=== PATIENT | female | born 1960 | race Caucasian/White ===

== ENCOUNTER → 2016-10-09 | Outpatient (CLI) | payer BC ==
--- NOTE | 2016-10-12 12:28 | MM ---
Reason for exam: screening (asymptomatic). Last mammogram was performed 2 years and 3 months ago. History: Patient is postmenopausal. Family history of breast cancer in maternal aunt at age 70. Physical Findings: A clinical breast exam by your physician is recommended on an annual basis and results should be correlated with mammographic findings. MG 3D Screening Mammo W/Cad Bilateral CC and MLO view(s) were taken. Prior study comparison: July 25, 2014, bilateral MG screening mammo w CAD. October 20, 2012, bilateral digital screening mammo w/CAD. There are scattered fibroglandular densities. No significant changes when compared with prior studies. ASSESSMENT: Negative, BI-RAD 1 RECOMMENDATION: Routine screening mammogram of both breasts in 1 year.
== END | disposition home or self-care (01) ==
LOC: RADMAMWWP 13:50
PROVIDERS: ATTEND Family Medicine
DX: Z12.31 Encounter for screening mammogram for malignant neoplasm of breast (principal)
CPT/HCPCS: 77063; G0202

== ENCOUNTER → 2017-08-03 | Outpatient (CLI) | payer BC ==
[2017-08-03 20:29] LABS: ALT 40 U/L (9-52); AST 25 U/L (14-36); Albumin 4.4 g/dL (3.5-5.0); Alkaline Phosphatase 91 U/L (38-126); Anion Gap 8 mmol/L; Blood Urea Nitrogen 15 mg/dL (7-17); Calcium 9.7 mg/dL (8.4-10.2); Carbon Dioxide 30 mmol/L (22-30); Chloride 102 mmol/L (98-107); Cholesterol 242 mg/dL (<200); Glucose 76 mg/dL (74-99); HDL Cholesterol 90 mg/dL (40-60); LDL Cholesterol,Calculated 139 mg/dL (0-99); Potassium 5.1 mmol/L (3.5-5.1); Sodium 140 mmol/L (137-145); Total Bilirubin 0.5 mg/dL (0.2-1.3); Total Protein 7.3 g/dL (6.3-8.2); Triglycerides 64 mg/dL (<150)
[2017-08-03 21:26] LABS: T4, Free (Free Thyroxine) 0.28 ng/dL (0.78-2.19)
== END | disposition home or self-care (01) ==
LOC: LABMAIN 17:53
PROVIDERS: ATTEND Internal Medicine
DX: E03.9 Hypothyroidism, unspecified (principal); E78.2 Mixed hyperlipidemia
CPT/HCPCS: 36415; 80053; 80061; 84439; 84443

== ENCOUNTER → 2017-11-12 | Outpatient (CLI) | payer BC ==
[2017-11-12 14:53] LABS: T4, Free (Free Thyroxine) 0.57 ng/dL (0.78-2.19)
== END | disposition home or self-care (01) ==
LOC: LABWHC1 12:24
PROVIDERS: ATTEND Internal Medicine
DX: E03.9 Hypothyroidism, unspecified (principal)
CPT/HCPCS: 36415; 84439; 84443

== ENCOUNTER → 2019-10-12 | Outpatient (CLI) | payer BC | END | disposition home or self-care (01) | DX: E03.4 Atrophy of thyroid (acquired) (principal) | CPT/HCPCS: 76536 ==

== ENCOUNTER → 2020-01-05 | Outpatient (CLI) | payer BC ==
--- NOTE | 2020-01-09 11:20 | MM ---
Reason for exam: screening (asymptomatic). Last mammogram was performed 3 years and 3 months ago. History: Patient is postmenopausal. Family history of breast cancer in maternal aunt at age 70. Physical Findings: A clinical breast exam by your physician is recommended on an annual basis and results should be correlated with mammographic findings. MG 3D Screening Mammo W/Cad Bilateral CC and MLO view(s) were taken. Prior study comparison: October 09, 2016, bilateral MG 3d screening mammo w/cad. July 25, 2014, bilateral MG screening mammo w CAD. There are scattered fibroglandular densities. No suspicious abnormality. No significant changes when compared with prior studies. ASSESSMENT: Negative, BI-RAD 1 RECOMMENDATION: Routine screening mammogram of both breasts in 1 year.
== END | disposition home or self-care (01) ==
LOC: RADMAMWWP 08:26
PROVIDERS: ATTEND Internal Medicine
DX: Z12.31 Encounter for screening mammogram for malignant neoplasm of breast (principal)
CPT/HCPCS: 77063; 77067

== ENCOUNTER → 2021-04-30 | Outpatient (CLI) | payer BC ==
--- NOTE | 2021-05-01 05:19 | MR ---
EXAMINATION TYPE: MR lumbar spine wo con DATE OF EXAM: 04/30/2021 COMPARISON: None HISTORY: Right leg/hip pain for 1 year. Multiplanar multiecho imaging of the lumbar spine without contrast. The lumbar vertebra have normal alignment. There is degenerative disc space narrowing throughout the lumbar spine. There is no compression fracture. There are small posterior disc bulging from L1 to L5. There is developmentally adequate spinal canal and not a significant spinal stenosis. There is some mild multilevel hypertrophic facet arthropathy. I see no focal bone destruction. There is no lumbar p araspinal mass. The sacrum is intact. IMPRESSION: Multilevel spondylotic changes. Multilevel small posterior central disc herniations from L1 to L5. No significant spinal stenosis.
== END | disposition home or self-care (01) ==
LOC: RADMRIMAIN 18:34
PROVIDERS: ATTEND Family Medicine
DX: M51.26 Other intervertebral disc displacement, lumbar region (principal); M47.816 Spondylosis without myelopathy or radiculopathy, lumbar region
CPT/HCPCS: 72148

== ENCOUNTER → 2021-05-23 | Outpatient (CLI) | payer BC ==
--- NOTE | 2021-05-23 13:33 | BD ---
EXAMINATION TYPE: Axial Bone Density DATE OF EXAM: 05/23/2021 COMPARISON: 08/22/2014 CLINICAL HISTORY: Height: 60 IN Weight: 159 LBS FRAX RISK QUESTIONS: Secondary Osteoporosis: Rheumatoid Arthritis: YES RISK FACTORS HISTORY OF: Active: YES Postmenopausal woman: AGE 48 MEDICATIONS: Thyroid Medications: YES Which medication: Levothyroxine How Lon+ YEARS Additional Medications: LEVOTHYROXINE, RINBOLQ, ARAVA, MOTRIN EXAM MEASUREMENTS: Bone mineral densitometry was performed using the [employer] System. Bone mineral density as measured about the Lumbar spine is: ----- L1-L4(G/cm2): 1.172 T Score Values are as follows: ----- L2: -1.0 ----- L3: 0.6 ----- L4: 0.2 ----- L1-L4: -0.1 Bone mineral density has: Increased 9.2% since study of: 08/22/2014 Bone mineral density about the R hip (g/cm2): 0.750 Bone mineral density about the L hip (g/cm2): 0.827 T Score values are as follows: -----R Neck: -2.1 -----L Neck: -1.5 -----R Total: -1.8 -----L Total: -1.3 Bone mineral density has: Decreased -2.9% since study of: 08/22/2014 IMPRESSION: Osteopenia bilateral femora. NOTE: T-SCORE=SD OF THE YOUNG ADULT MEAN.
--- NOTE | 2021-05-26 12:00 | MM ---
Reason for exam: screening (asymptomatic). Last mammogram was performed 1 year and 5 months ago. History: Patient is postmenopausal. Family history of breast cancer in maternal aunt at age 70. Took hormonal contraceptives for 5 years. Physical Findings: A clinical breast exam by your physician is recommended on an annual basis and results should be correlated with mammographic findings. MG 3D Screening Mammo W/Cad Bilateral CC and MLO view(s) were taken. Prior study comparison: January 05, 2020, bilateral MG 3d screening mammo w/cad. October 09, 2016, bilateral MG 3d screening mammo w/cad. There are scattered fibroglandular densities. There is no discrete abnormality. No significant changes when compared with prior studies. ASSESSMENT: Negative, BI-RAD 1 RECOMMENDATION: Routine screening mammogram of both breasts in 1 year.
== END | disposition home or self-care (01) ==
LOC: RADMAMWWP 09:43
PROVIDERS: ATTEND Family Medicine
DX: Z12.31 Encounter for screening mammogram for malignant neoplasm of breast (principal); M85.89 Other specified disorders of bone density and structure, multiple sites; Z78.0 Asymptomatic menopausal state
CPT/HCPCS: 77063; 77067; 77080

== ENCOUNTER 2022-01-23 09:53 | Day surgery (SDC) | payer BC ==
[2022-01-21 15:02] VITALS: BMI 29.2
[~2022-01-23 09:53] MED LIST: DEXAMETHASONE SOD PHOSPHATE 4 MG/ML 1 ML VIAL IV ONE; HYDROmorphone 0.5 MG/0.5 ML SYRINGE IVP PRN; LACTATED RINGERS 1,000 ML IV SCH; MIDAZOLAM 2 MG/2 ML VIAL IV PRN; ONDANSETRON 4 MG/2 ML VIAL IVP ONE; SCOPOLAMINE 1 MG/72 HR PATCH TRANSDERM ONE
[2022-01-23] MEDS ORDERED: LIDOCAINE 2% INJ 20 MG/ML (2 ML VIAL) ONE (12:15)
[2022-01-23] MEDS ORDERED: PROPOFOL 10 MG/ML 20 ML VIAL IV ONE (12:15)
[2022-01-23] MEDS ORDERED: MIDAZOLAM 2 MG/2 ML VIAL ONE (12:15)
[2022-01-23] MEDS ORDERED: fentaNYL (PF) 50 MCG/ML 2 ML AMP ONE (12:15)
[2022-01-23] MEDS ORDERED: ceFAZolin 1,000 MG in SODIUM CHLORIDE 0.9% 1,000 ML IRRIGATION ONE (12:19)
[2022-01-23] MEDS ORDERED: BUPIVACAINE (PF) 0.25% 30 ML VIAL SQ ONE (12:33)
[2022-01-23 13:19] VITALS: TEMP 97.9
--- NOTE | 2022-01-23 13:33 | P.OP ---
Date of Procedure: 01/23/22 Preoperative Diagnosis: Fifth metatarsal fracture with delayed healing right foot Postoperative Diagnosis: Same Procedure(s) Performed: Open reduction with internal fixation right fifth metatarsal fracture Implants: 4.5 mm x 50 mm partially threaded screw 1.5 mL Augment Anesthesia: SARIAH Surgeon: Wilmer Caraballo Estimated Blood Loss (ml): 1 Pathology: none sent Condition: stable Disposition: PACU Description of Procedure: The patient was brought into the operating room and placed on table supine position. Timeout was taken to confirm correct patient identifiers, correct procedure, and correct laterality of surgery. Once all staff in the room were in agreement with the timeout, anesthesia induced the patient and placed them under general anesthetic. A well-padded tourniquet was placed on the right ankle. 15 mL of 0.25% Marcaine was injected as a right ankle block. A bump was placed underneath the right hip to internally rotate the right foot. The right foot was then prepped and draped in the usual manner. The foot was exsanguinated and the tourniquet inflated to 250 mmHg. Utilizing fluoroscopy and outlined and the skin was made proximal to the fifth metatarsal base for the proper placement of the skin incision. The incision was made through the skin and deepened down to the subcutaneous tissue careful to identify, avoid, and retract any neurovascular structures and cauterize any bleeding vessels. Blunt dissection was continued through the subcutaneous layer to the base of the fifth metatarsal. Under direct fluoroscopic visualization, a guidewire for the screw system was placed at the fifth metatarsal tuberosity. It was slowly advanced into the medullary canal but proximal to the fracture line. The trajectory of the pin was checked both on the AP and lateral views to ensure that it stayed within the medullary canal. The wire was then advanced to the fracture line at which point the drill was inserted over the wire and used to pass the sclerotic bone contained within the fracture. Once the drill had gone past the fracture the wire was advanced distally into the medullary canal and the remaining drilling was performed. With the wire still in place the depth gauge was used to determine the correct length of screw. Then the tap was placed over the wire and advanced until the threaded past the fracture line. The tap and wire were removed and then the area was thoroughly irrigated. Then 1.5 mL of Augment was injected directly into medullary canal concentrated near the fracture line. Then a 4.5 mm x 50 mm partially threaded screw was inserted into the drill hole and advanced until the threads were distal to the fracture line and the head engaged the cortex of the fifth metatarsal base. AP and lateral views with fluoroscopy confirmed the proper placement of the screw. The wound is then irrigated. And then the incision closed with 3-0 nylon. Nonadherent gauze and a bulky dry dressing applied to the right foot. The tourniquet was released and capillary refill return to all digits on the right foot. The patient was then placed in a well-padded, well molded plaster posterior mold/sugar tong splint. The ankle for held in neutral position as the splint dried. Once dried anesthesia was reversed and the patient was taken recovery with vital signs stable.
[2022-01-23 14:08] VITALS: BP 146/92; PULSE 73; RESP 18
== END 2022-01-23 14:45 | disposition home or self-care (01) ==
LOC: OR 09:53
PROVIDERS: ATTEND Podiatrist
DX: S92.351G Displaced fracture of fifth metatarsal bone, right foot, subsequent encounter for fracture with delayed healing (principal); M06.9 Rheumatoid arthritis, unspecified; E03.9 Hypothyroidism, unspecified; Z83.3 Family history of diabetes mellitus; Z82.49 Family history of ischemic heart disease and other diseases of the circulatory system; Z87.891 Personal history of nicotine dependence; X58.XXXD Exposure to other specified factors, subsequent encounter; Z79.890 Hormone replacement therapy; Z79.899 Other long term (current) drug therapy
CPT/HCPCS: 28485; C1713 ×2; J2250; J1100; J0690 ×2; J2405; J3010; J2704; J2001

== ENCOUNTER → 2022-06-05 | Outpatient (CLI) | payer BC ==
--- NOTE | 2022-06-05 09:51 | BD ---
EXAMINATION TYPE: Axial Bone Density DATE OF EXAM: 06/05/2022 COMPARISON: 05-23-21 CLINICAL HISTORY: 61 years year old Female. ICD-10 CODE: M81.0 AGE-RELATED OSTEOPOROSIS Height: 60IN Weight: 163LB FRAX RISK QUESTIONS: History of Fracture in Adulthood: YES Secondary Osteoporosis: Rheumatoid Arthritis: YES RISK FACTORS HISTORY OF: Active: YES Postmenopausal woman: YES AT 48 Lost more than 2 inches in height since high school: PT UNSURE MEDICATIONS: Thyroid Medications: Which medication: Levothyroxine How Lon+ YEARS Additional Medications: MOTRIN, RINVOQ, ARAVA, VITAMIN D Additional History: FOOT FX EXAM MEASUREMENTS: Bone mineral densitometry was performed using the [employer] System. Bone mineral density as measured about the Lumbar spine is: ----- L1-L4(G/cm2): 1.075 T Score Values are as follows: ----- L1: -1.3 ----- L2: -1.6 ----- L3: -0.2 ----- L4: -0.3 ----- L1-L4: -0.9 Bone mineral density has: Decreased -7.1% since study of: 05-23-21 Bone mineral density about the R hip (g/cm2): 0.723 Bone mineral density about the L hip (g/cm2): 0.846 T Score values are as follows: -----R Neck: -2.1 -----L Neck: -1.6 -----R Total: -2.3 -----L Total: -1.3 Bone mineral density has: Decreased -3.8% since study of: 05-23-21 FRAX%s: The graph provided illustrates a 21.1% chance for a major osteoporotic fx and a 3.5% chance f or the hips probability for fx in 10 years time. IMPRESSION: Osteopenia (T Score between -2.5 and -1). There is slightly increased risk of fracture and the patient may be considered for treatment. Re-Screen 2-5 years. NOTE: T-SCORE=SD OF THE YOUNG ADULT MEAN.
== END | disposition home or self-care (01) ==
LOC: RADBDWWP 09:04
PROVIDERS: ATTEND Internal Medicine Rheumatology
DX: M85.89 Other specified disorders of bone density and structure, multiple sites (principal)
CPT/HCPCS: 77080

== ENCOUNTER → 2022-08-07 | Outpatient (CLI) | payer BC ==
--- NOTE | 2022-08-10 08:05 | MM ---
Reason for Exam: Screening (asymptomatic). Last mammogram was performed 1 year(s) and 3 month(s) ago. Patient History: Menarche at age 17. First Full-Term at age 27. Postmenopausal. Patient used Hormonal Contraceptives for 5 years. Maternal aunt had breast cancer, age 70. Risk Values: Rozina 5 year model risk: 1.5%. NCI Lifetime model risk: 7.4%. Prior Study Comparison: 10/09/2016 Bilateral Screening Mammogram, [facility]. 01/05/2020 Bilateral Screening Mammogram, [facility]. 05/23/2021 Bilateral Screening Mammogram, [facility]. Tissue Density: There are scattered fibroglandular densities. Findings: Analyzed By CAD. There is no suspicious group of microcalcifications or new suspicious mass in either breast. Overall Assessment: Negative, BI-RAD 1 Management: Screening Mammogram of both breasts in 1 year. A clinical breast exam by your physician is recommended on an annual basis and results should be correlated with mammographic findings. Electronically signed and approved by: Jaret Soriano M.D.
== END | disposition home or self-care (01) ==
LOC: RADMAMWWP 10:50
PROVIDERS: ATTEND Family Medicine
DX: Z12.31 Encounter for screening mammogram for malignant neoplasm of breast (principal); Z78.0 Asymptomatic menopausal state; Z80.3 Family history of malignant neoplasm of breast
CPT/HCPCS: 77063; 77067

== ENCOUNTER → 2022-08-21 | Outpatient (CLI) | payer BC ==
--- NOTE | 2022-08-21 14:24 | CT ---
EXAMINATION: CT ABDOMEN AND PELVIS WITH IV CONTRAST DATE OF EXAMINATION: 08/21/2022. COMPARISON: None available. INDICATION: And burning and pelvic region. PROCEDURE: Axial CT of the abdomen and pelvis was performed with contrast and sagittal and coronal reformatted images were performed. CT dose lowering techniques were used, to include: automated expos ure control, adjustment for patient size, and/or use of iterative reconstruction. 70 mL of Isovue-300 was given intravenously. FINDINGS: LOWER CHEST : The visualized lung bases are clear. There are no pleural or pericardial effusions. ABDOMEN: Liver and Biliary system: Normal. Adrenal glands: Normal. Kidneys and ureters: Normal. Spleen: Normal. Pancreas: Normal. Gallbladder: Normal. Lymph nodes, Peritoneum and mesentery: There is no mesenteric or retroperitoneal lymphadenopathy. Gastrointestinal tract: There are no dilated loops of bowel or free intraperitoneal air. The appe ndix is normal. Aorta/IVC: No aortic aneurysm. IVC normal. Abdominal wall: Normal. PELVIS: Fluid: There is no free fluid in the pelvis. Lymph Nodes: There is no pelvic or inguinal lymphadenopathy.. Urinary bladder: Normal. BONES: There is some scattered degenerative disc and facet changes seen throughout the spine. No agg ressive osseous lesions are otherwise identified. ADDITIONAL SIGNIFICANT FINDINGS: None. IMPRESSION: 1. No acute process seen within the abdomen or pelvis. 2. Diverticulosis without evidence of diverticulitis.
== END | disposition home or self-care (01) ==
LOC: RADCTMAIN 12:16
PROVIDERS: ATTEND Family Medicine
DX: K57.90 Diverticulosis of intestine, part unspecified, without perforation or abscess without bleeding (principal); G57.23 Lesion of femoral nerve, bilateral lower limbs; R20.2 Paresthesia of skin
CPT/HCPCS: 74177; Q9967

== ENCOUNTER → 2022-11-27 | Outpatient (CLI) | payer BC ==
--- NOTE | 2022-11-30 12:25 | US ---
EXAMINATION TYPE: US arterial UE single level DATE OF EXAM: 11/27/2022 2:03 PM CLINICAL INDICATION: Female, 62 years old with history of M05.79,M79.641,M79.642,M54.50,G89.29; numbn ess within hand and fingers History of: Smoker: previous Hypertension: Yes Diabetic: No Hyperlipidemia: No TIA/CVA: No Previous Vascular Surgery: No CAD: No PA: No Vascular Ulcers: No Claudication: No Gangrene: No Doppler Waveforms: Right: Brachial: Multiphasic Radial: Multiphasic Ulnar: Multiphasic Left: Brachial: Multiphasic Radial: Multiphasic Ulnar: Multiphasic Wrist Brachial Indices: Right: 0.94 Left: 0.94 IMPRESSION: Normal blood flow to the bilateral upper extremities
== END | disposition home or self-care (01) ==
LOC: RADUSWWP 13:16
PROVIDERS: ATTEND Internal Medicine Rheumatology
DX: M79.641 Pain in right hand (principal); M79.642 Pain in left hand; M05.79 Rheumatoid arthritis with rheumatoid factor of multiple sites without organ or systems involvement; M54.50 Low back pain, unspecified; G89.29 Other chronic pain; I10 Essential (primary) hypertension
CPT/HCPCS: 93922

== ENCOUNTER → 2023-02-12 | Outpatient (CLI) | payer BC ==
--- NOTE | 2023-02-12 11:58 | US ---
EXAMINATION TYPE: US venous doppler duplex LE LT DATE OF EXAM: 02/12/2023 11:48 AM COMPARISON: NONE CLINICAL INDICATION: Female, 62 years old with history of R22.42 SWELLING, MASS AND LUMP; SIDE PERFORMED: Left TECHNIQUE: The lower extremity deep venous system is examined utilizing real time linear array sonog beatriz with graded compression, doppler sonography and color-flow sonography. VESSELS IMAGED: Common Femoral Vein Deep Femoral Vein Greater Saphenous Vein * Femoral Vein Popliteal Vein Small Saphenous Vein * Proximal Calf Veins (* superficial vessels) Left Leg: Negative for DVT Small fluid collection left pop fossa measures 1.0 x 0.6 cm. IMPRESSION: 1. Left lower extremity ultrasound negative for deep venous thrombosis.
== END | disposition home or self-care (01) ==
LOC: RADUSWWP 11:14
PROVIDERS: ATTEND Internal Medicine Geriatric Medicine
DX: R22.42 Localized swelling, mass and lump, left lower limb (principal)

== ENCOUNTER → 2023-04-02 | Outpatient (CLI) | payer BC ==
--- NOTE | 2023-04-02 13:54 | XR ---
EXAMINATION TYPE: XR thoracic spine complete DATE OF EXAM: 04/02/2023 COMPARISON: NONE HISTORY: Pain TECHNIQUE: 3 views submitted FINDINGS: Alignment is anatomic. There is no compression deformities. Scoliosis with multilevel moderate to se yesica degenerative disc disease. Surgical change involving the cervical spine. IMPRESSION: Scoliosis with moderate to severe multilevel degenerative disc disease.
== END | disposition home or self-care (01) ==
LOC: RADXRMAIN 13:31
PROVIDERS: ATTEND Psychiatry & Neurology Neurology
DX: M51.34 Other intervertebral disc degeneration, thoracic region (principal); M41.84 Other forms of scoliosis, thoracic region; Z98.890 Other specified postprocedural states
CPT/HCPCS: 72072

== ENCOUNTER → 2024-09-01 | Outpatient (CLI) | payer BC ==
--- NOTE | 2024-09-01 09:32 | MM ---
Reason for Exam: Screening (asymptomatic). Last mammogram was performed 2 year(s) and 0 month(s) ago. Patient History: Menarche at age 17. First Full-Term at age 27. Postmenopausal. Patient used Hormonal Contraceptives for 5 years. Maternal aunt had breast cancer, age 70. Risk Values: Rozina 5 year model risk: 1.5%. NCI Lifetime model risk: 7.0%. Prior Study Comparison: 01/05/2020 Bilateral Screening Mammogram, [facility]. 05/23/2021 Bilateral Screening Mammogram, [facility]. 08/07/2022 Bilateral MG 3D screening mammo w/cad, [facility]. Tissue Density: There are scattered areas of fibroglandular density. Findings: Analyzed By CAD. Right breast: There is no suspicious group of microcalcifications or new suspicious mass. Left breast: There is no suspicious group of microcalcifications or new suspicious mass. Overall Assessment: Negative, BI-RAD 1 Management: Screening Mammogram of both breasts in [address] [facility] will attempt to contact patient to return for supplemental views and ultrasound if indicated. Patient should continue monthly self-breast exams. A clinical breast exam by your physician is recommended on an annual basis. This exam should not preclude additional follow-up of suspicious palpable abnormalities. Note on Rozina scores and lifetime risk: 1. A Rozina score greater than 3% is considered moderate risk. If this is the case, consider specialist referral to assess eligibility for a risk reducing agent. 2. If overall lifetime risk for the development of breast cancer is 20% or higher, the patient may qualify for future screening with alternating mammogram and breast MRI. [facility], , 09/01/2024 9:29 AM. Electronically signed and approved by: Stewart Monique DO
--- NOTE | 2024-09-01 10:09 | BD ---
EXAMINATION TYPE: Axial Bone Density DATE OF EXAM: 09/01/2024 CLINICAL HISTORY: 63 years old Female. ICD-10 CODE: M81.0 AGE-RELATED OSTEOPOROSIS W/ , Additional History: Height: 59.5 Weight: 154 FRAX RISK QUESTIONS: Family History (Parent hip fracture): no History of Fracture in Adulthood: no Secondary Osteoporosis: no Rheumatoid Arthritis: yes RISK FACTORS HISTORY OF: Surgery to Spine: yes When: 07/2023 MEDICATIONS: Thyroid Medications: yes Which medication: Levothyroxine How Lon+ years Osteoporosis Medications: yes Which medication: Fosamax How Lon+ years EXAM MEASUREMENTS: Bone mineral densitometry was performed using the [employer] System. Bone mineral density about the R hip (g/cm2): 0.721 Bone mineral density about the L hip (g/cm2): 0.800 T Score values are as follows: -----R Neck: -2.4 -----L Neck: -2.0 -----R Total: -2.3 -----L Total: -1.6 Z Score values are as follows: -----R Neck: -1.1 -----L Neck: -0.7 -----R Total: -1.3 -----L Total: -0.7 Bone mineral density has: Decreased -3.1% since study of: 06/05/2022 Bone mineral density about the L Wrist (g/cm2): 0.521 T Score values are as follows: -----Dist. R+U: -2.3 -----Prox. R+U: -2.4 -----Radius total: -2.5 Z Score values are as follows: -----Dist. R+U: -1.2 -----Prox. R+U: -1.2 -----Radius total: -1.4 Bone mineral density baseline FRAX%s: The graph provided illustrates a 14.9% chance for a major osteoporotic fx and a 2.9% chance f or the hips probability for fx in 10 years time. IMPRESSION: Osteopenia (T Score between -2.5 and -1). There is slightly increased risk of fracture and the patient may be considered for treatment. Re-Screen 2-5 years. NOTE: T-SCORE=SD OF THE YOUNG ADULT MEAN. [facility], , 09/01/2024 10:06 AM
== END | disposition home or self-care (01) ==
LOC: RADMAMWWP 08:50
PROVIDERS: ATTEND Family Medicine
DX: Z12.31 Encounter for screening mammogram for malignant neoplasm of breast (principal); M81.0 Age-related osteoporosis without current pathological fracture; R92.323 Mammographic fibroglandular density, bilateral breasts; Z78.0 Asymptomatic menopausal state; Z80.3 Family history of malignant neoplasm of breast
CPT/HCPCS: 77063; 77067; 77080